=== PATIENT | female | born 1960 | race Caucasian/White ===

== ENCOUNTER → 2016-09-30 | Outpatient (CLI) | payer BC ==
[~2016-09-30] MED LIST: MULT-506 PO
--- NOTE | 2016-09-30 16:40 | MAMMOGRAPHY REPORT ---
BILATERAL DIGITAL SCREENING MAMMOGRAM TOMOSYNTHESIS WITH CAD: 09/30/2016 CLINICAL HISTORY: Routine screening. Patient reported a recent burning sensation in the medial righ t breast, to our robotics technologist during this screening examination. TECHNIQUE: Breast tomosynthesis in addition to standard 2D mammography was performed. Current study was also evaluated with a Computer Aided Detection (CAD) system. COMPARISON: Comparison is made to exams dated: 09/25/2015 mammogram, 09/19/2014 mammogram, 09/15/2013 m ammogram, 09/03/2012 mammogram, 09/01/2011 mammogram, and 08/28/2010 mammogram - [facility]. BREAST COMPOSITION: The tissue of both breasts is heterogeneously dense, which may obscure small ma sses. FINDINGS: There are scattered and grouped stable benign-appearing punctate microcalcifications in th e breasts. No suspicious mass, architectural distortion or cluster of suspicious microcalcification s is seen. IMPRESSION: ACR BI-RADS CATEGORY 1: NEGATIVE 1. There is no mammographic evidence of malignancy. A 1 year screening mammogram is recommended. 2. Clinical follow-up is recommended for the reported burning sensation in the medial right breast. The patient will receive written notification of the results. Approximately 10% of breast cancers are not detected with mammography. A negative mammographic repor t should not delay biopsy if a clinically suggestive mass is present. Deja House M.D. ay/:09/30/2016 15:48:51 Scientific Director: Trixie CUEVAS(Pelon)(Tatyana), [facility] letter sent: Normal 1/2 BI-RADS Code: ACR BI-RADS Category 1: Negative
== END | disposition home or self-care (01) ==
LOC: C.MAMM 08:26
PROVIDERS: ATTEND Obstetrics & Gynecology
DX: Z12.31 Encounter for screening mammogram for malignant neoplasm of breast (principal)

== ENCOUNTER → 2016-10-21 | Outpatient (CLI) | payer BC | END | disposition home or self-care (01) | LOC: C.LAB 08:08 | PROVIDERS: ATTEND Nutritionist | DX: Z13.89 Encounter for screening for other disorder (principal) ==

== ENCOUNTER → 2017-01-06 | Outpatient (CLI) | payer BC ==
[2017-01-10 20:38] LABS: IGA SERUM 187 mg/dL (81-463); TIS TRANS IGA 1 U/mL (<4)
== END | disposition home or self-care (01) ==
LOC: C.LAB1850 11:27
PROVIDERS: ATTEND Physician Assistant
DX: R19.7 Diarrhea, unspecified (principal)

== ENCOUNTER → 2017-01-09 | Day surgery (SDC) | payer BC ==
[2017-01-08 07:59] VITALS: Ht 167.6 cm; Wt 72.3 kg
[~2017-01-09] VITALS: Ht 167.6 cm; Wt 72.3 kg
[~2017-01-09] MED LIST changes: +LIDOCAINE HCL 2% 2 ML VIAL (20MG/ML) ONE; -MULT-506 PO; +PROPOFOL IV EMULSION 10 MG/ML 20 ML VIAL IV ONE; +SODIUM CHLORIDE 0.9% 500ML 500 ML IV ONE
--- NOTE | 2017-01-09 13:32 | Endo History and Physical ---
History & Physical Date of Service: Jan 09, 2017. Chief Complaint: diarrhea Referring Physician: Dr. Darlyn Ayoub History of Present Illness 56 yo CF who presents for Colonoscopy secondary to diarrhea. Past Surgical History Hx Cardiac Surgery: No Hx Internal Defibrillator: No Hx Pacemaker: No Hx Abdominal Surgery: Yes (KODY, ) Hx of Implantable Prosthesis: No Hx Post-Op Nausea and Vomiting: No Hx Cancer Surgery: No Hx Thoracic Surgery: No Hx Orthopedic: No Hx Urinary Tract Surgery: No Family History Colon CA Social History Smoking Status: Never Smoker Hx Substance Use: No Hx Alcohol Use: No Allergies Coded Allergies: Nitrofurantoin (Verified Allergy, Unknown, RASH AND HIVES, 01/08/17) Current Medications Reported Home Medications Medications Dose Route/Sig Max Daily Dose Days Date Category No Active Prescriptions or Reported Medications Rx Vital Signs Weight (Kilograms): 72.27 Height (Feet): 5 Height (Inches): 6 Date Time Temp Pulse Resp B/P (MAP) Pulse Ox O2 Delivery O2 Flow Rate FiO2 01/09/17 13:17 36.8 70 18 118/75 (89) 100 Room Air Physical Exam General Appearance: WD/WN, no apparent distress Respiratory/Chest: Auscultation: breath sounds normal Cardiovascular: Heart Auscultation: RRR Abdomen: Bowel Sounds: normal Inspection & Palpation: soft, non-distended, no tenderness, guarding & rebound Assessment and Plan Assessment: 56 yo CF who presents for Colonoscopy secondary to diarrhea. Plan: Proceed with colonoscopy.
--- NOTE | 2017-01-09 14:00 | GI REPORT ---
Procedure Date: 01/09/2017 1:37 PM Procedure: Colonoscopy Indications: Chronic diarrhea Medicines: Monitored Anesthesia Care Complications: No immediate complications. Estimated Blood Loss: Estimated blood loss: none. Procedure: Pre-Anesthesia Assessment: - Prior to the procedure, a History and Physical was performed, and patient medications and allergies were reviewed. The patient's tolerance of previous anesthesia was also reviewed. The risks and benefits of the procedure and the sedation options and risks were discussed with the patient. All questions were answered, and informed consent was obtained. Prior Anticoagulants: The patient has taken no previous anticoagulant or antiplatelet agents. ASA Grade Assessment: II - A patient with mild systemic disease. After reviewing the risks and benefits, the patient was deemed in satisfactory condition to undergo the procedure. After I obtained informed consent, the scope was passed under direct vision. Throughout the procedure, the patient's blood pressure, pulse, and oxygen saturations were monitored continuously. The scope was introduced through the anus and advanced to the terminal ileum. The colonoscopy was performed without difficulty. The patient tolerated the procedure well. The quality of the bowel preparation was good. The terminal ileum, ileocecal valve, appendiceal orifice, and rectum were photographed. Findings: Non-bleeding internal hemorrhoids were found during retroflexion. The hemorrhoids were small. Several random biopsies were obtained with cold forceps for histology in the entire colon. Fluid aspiration for cytology was performed in the entire colon. Impression: - Non-bleeding internal hemorrhoids. - Several random biopsies were obtained in the entire colon. - Fluid aspiration was performed. Recommendation: - Resume previous diet. - Continue present medications. - Repeat colonoscopy for surveillance based on pathology results. - Return to primary care physician as previously scheduled. Ryan Douglas DO 01/09/2017 2:00:22 PM This report has been signed electronically. Note Initiated On: 01/09/2017 1:37 PM I attest to the content of the Intraoperative Record and orders documented therein, exceptions below
--- NOTE | 2017-01-09 14:03 | Discharge Instructions ---
Endoscopy Patient Instructions Date / Procedure(s) Performed Jan 09, 2017. Colonoscopy Allergy Information Coded Allergies: Nitrofurantoin (Verified Allergy, Unknown, RASH AND HIVES, 01/08/17) Discharge Date / Findings Jan 09, 2017. Internal hemorrhoids Random colon biopsies Stool aspirate collected Medication Instructions OK to resume all medications today as prescribed Reported Home Medications Medications Dose Route/Sig Max Daily Dose Days Date Category No Active Prescriptions or Reported Medications Rx Provider Instructions Activity Restrictions - No exercising or heavy lifting for 24 hours. - Do not drink alcohol the day of the procedure. - Do not drive a car or operate machinery until the day after the procedure. - Do not make any important decisions or sign important papers in 24 hours after the procedure. Following Day: - Return to full activity which may include returning to work/school. Diet Start your diet with liquids and light foods (jello, soup, juice, toast). Then eat your usual diet if not nauseated. Treatment For Common After Affects For mild abdominal pain, bloating, or excessive gas: - Rest - Eat lightly - Lie on right side Follow-Up Information Follow-up with Dr. Darlyn Ayoub as scheduled Anesthesia Information What You Should Know You have had a procedure that required some medicine to reduce anxiety and discomfort. This treatment is called moderate sedation. After receiving the treatment, you may be sleepy, but you will be able to breathe on your own. The effects of the treatment may last for several hours. Follow these instructions along with Activity/Diet recommendations noted above: * Do NOT do anything where dizziness or clumsiness would be dangerous. * Rest quietly at home today, then you can be up and about tomorrow. * Have a responsible person stay with you the rest of today. * You may have had an I.V. today. If so, you may take the dressing off later today. Recommendations Call your doctor if: * Trouble breathing * Continuous vomiting for more than 24 hours * Temperature above 101 degrees * Severe abdominal pain or bloating * Pain not relieved by pain medicine ordered * There is increased drainage or redness from any incision * A large amount of rectal bleeding greater than 2-3 tablespoons. (If you had a polyp/s removed or have hemorrhoids, a small amount of blood - from the rectum is to be expected.) * You have any unanswered questions or concerns. IN THE EVENT OF A SERIOUS EMERGENCY, GO TO THE NEAREST EMERGENCY ROOM Your discharge instructions were prepared by provider Ryan Douglas. Patient Instructions Signature Page Naima Rhodes Patient (or Guardian) Signature/Date: I have read and understand the instructions given to me by my caregivers. Caregiver/RN/Doctor Signature/Date: The above-named patient and/or guardian has received patient instructions on this date. + Original Patient Signature Page (only) stays with chart. Please make copy for patient.
[2017-01-09 14:25] VITALS: BP 119/79; PULSE 63; O2SAT 99
--- NOTE | 2017-01-09 15:39 | Anesthesiology Progress Note ---
Anesthesia Post Op Note Date & Time Jan 09, 2017 at 15:39 Vital Signs Pain Intensity: 0 Vital Signs Past 12 Hours Date Time Temp Pulse Resp B/P (MAP) Pulse Ox O2 Delivery O2 Flow Rate FiO2 01/09/17 14:25 63 20 119/79 (92) 99 Room Air 01/09/17 14:09 71 18 128/66 (86) 94 Room Air 01/09/17 13:54 87 18 114/66 (82) 97 Room Air 01/09/17 13:17 36.8 70 18 118/75 (89) 100 Room Air Notes Mental Status: alert / awake / arousable, participated in evaluation Pt Amnestic to Procedure: Yes Nausea / Vomiting: adequately controlled Pain: adequately controlled Airway Patency, RR, SpO2: stable & adequate BP & HR: stable & adequate Hydration State: stable & adequate Anesthetic Complications: no major complications apparent
== END | disposition home or self-care (01) ==
LOC: C.GI 12:58
PROVIDERS: ATTEND Internal Medicine
DX: K52.9 Noninfective gastroenteritis and colitis, unspecified (principal); R19.7 Diarrhea, unspecified; Z80.0 Family history of malignant neoplasm of digestive organs; K64.8 Other hemorrhoids

== ENCOUNTER → 2017-02-19 | Outpatient (CLI) | payer BC ==
[~2017-02-19] MED LIST changes: -LIDOCAINE HCL 2% 2 ML VIAL (20MG/ML) ONE; +OPTIRAY 320 IV PRN; -PROPOFOL IV EMULSION 10 MG/ML 20 ML VIAL IV ONE; -SODIUM CHLORIDE 0.9% 500ML 500 ML IV ONE
--- NOTE | 2017-02-19 11:50 | DIAGNOSTIC IMAGING REPORT ---
ABDOMEN AND PELVIS CT WITH IV AND ORAL CONTRAST CT DOSE: 730.10 mGycm HISTORY: R19.7 [id number] Nonspecific [id number] Abdominal [id number] TECHNIQUE: Multiaxial CT images of the abdomen and pelvis were performed following the use of intravenous and oral contrast. A dose lowering technique was utilized adhering to the principles of ALARA. COMPARISON STUDY: None. FINDINGS: The lung bases are essentially clear. No pneumoperitoneum. No pneumatosis. A 4 cm low density structure within the sacral canal at the S2 level likely represents a Tarlov cyst. There are few scattered punctate calcifications within the peritoneum along the surface of the right hepatic dome. These are of doubtful clinical significance. Cholecystectomy. The liver, spleen, adrenal glands, and pancreas are unremarkable. A 3 mm hypodense lesion within the right kidney is too small to characterize. There is a 4 mm stone within the upper pole the left kidney. No ureteral stones. No hydronephrosis. No retroperitoneal lymphadenopathy. Tiny fat-containing umbilical hernia and tiny fat-containing bilateral inguinal hernias. The bladder, uterus, and ovaries are unremarkable. No bowel wall thickening or obstruction. Normal appendix. IMPRESSION: 1. No bowel wall thickening or obstruction. 2. Cholecystectomy. 3. Left-sided nephrolithiasis. No ureteral stones. No hydronephrosis. 4. Additional findings as described above. Electronically signed by: Poncho Schroeder M.D. 02/19/2017 11:48 AM Dictated Date/Time: 02/19/2017 11:34 AM
== END | disposition home or self-care (01) ==
LOC: C.CTS 10:43
PROVIDERS: ATTEND Family Medicine
DX: K52.9 Noninfective gastroenteritis and colitis, unspecified (principal); R19.7 Diarrhea, unspecified; R10.9 Unspecified abdominal pain

== ENCOUNTER → 2017-04-06 | Outpatient (CLI) | payer BC ==
[~2017-04-06] MED LIST changes: +MULT-506 PO; -OPTIRAY 320 IV PRN
== END | disposition home or self-care (01) ==
LOC: C.PAPS 11:56
PROVIDERS: ATTEND Obstetrics & Gynecology
DX: Z01.419 Encounter for gynecological examination (general) (routine) without abnormal findings (principal)

== ENCOUNTER → 2017-04-13 | Day surgery (SDC) | payer BC ==
[2017-03-31 12:01] VITALS: Ht 167.6 cm; Wt 72.3 kg
[~2017-04-13] VITALS: Ht 167.6 cm; Wt 72.3 kg
[~2017-04-13] MED LIST changes: +LIDOCAINE HCL 2% 2 ML VIAL (20MG/ML) ONE; +MIDAZOLAM HCL 1 MG/ML 2ML VIAL ONE; +ONDANSETRON INJ 2 MG/ML 2 ML VIAL ONE; +PROPOFOL IV EMULSION 10 MG/ML 20 ML VIAL IV ONE; +SODIUM CHLORIDE 0.9% 500ML 500 ML IV ONE
--- NOTE | 2017-04-13 12:32 | Endo History and Physical ---
History & Physical Date of Service: Apr 13, 2017. Chief Complaint: Diarrhea Referring Physician: Alaina Ayoub History of Present Illness 56 yo CF who presents for colonoscopy secondary to diarrhea. Past Surgical History Hx Cardiac Surgery: No Hx Internal Defibrillator: No Hx Pacemaker: No Hx Abdominal Surgery: Yes (KODY, ) Hx of Implantable Prosthesis: No Hx Post-Op Nausea and Vomiting: No Hx Cancer Surgery: No Hx Thoracic Surgery: No Hx Orthopedic: No Hx Urinary Tract Surgery: No Family History Colon CA Social History Smoking Status: Never Smoker Hx Substance Use: No Hx Alcohol Use: No Allergies Coded Allergies: Nitrofurantoin (Verified Allergy, Unknown, RASH AND HIVES, 04/13/17) Current Medications Reported Home Medications Medications Dose Route/Sig Max Daily Dose Days Date Category Multivitamin (Multivitamins) Tab 1 Tab PO DAILY 03/31/17 Reported Vital Signs Weight (Kilograms): 72.27 Height (Feet): 5 Height (Inches): 6 Date Time Temp Pulse Resp B/P (MAP) Pulse Ox O2 Delivery O2 Flow Rate FiO2 04/13/17 12:05 36.6 78 20 113/59 (77) 99 Room Air Physical Exam General Appearance: WD/WN, no apparent distress Respiratory/Chest: Auscultation: breath sounds normal Cardiovascular: Heart Auscultation: RRR Abdomen: Bowel Sounds: normal Inspection & Palpation: soft, non-distended, no tenderness, guarding & rebound Assessment and Plan Assessment: 56 yo CF who presents for colonoscopy secondary to diarrhea. Plan: Proceed with colonoscopy.
--- NOTE | 2017-04-13 12:54 | GI REPORT ---
Procedure Date: 04/13/2017 12:35 PM Procedure: Colonoscopy Indications: Chronic diarrhea Medicines: Monitored Anesthesia Care Complications: No immediate complications. Estimated Blood Loss: Estimated blood loss: none. Procedure: Pre-Anesthesia Assessment: - Prior to the procedure, a History and Physical was performed, and patient medications and allergies were reviewed. The patient's tolerance of previous anesthesia was also reviewed. The risks and benefits of the procedure and the sedation options and risks were discussed with the patient. All questions were answered, and informed consent was obtained. Prior Anticoagulants: The patient has taken no previous anticoagulant or antiplatelet agents. ASA Grade Assessment: II - A patient with mild systemic disease. After reviewing the risks and benefits, the patient was deemed in satisfactory condition to undergo the procedure. After I obtained informed consent, the scope was passed under direct vision. Throughout the procedure, the patient's blood pressure, pulse, and oxygen saturations were monitored continuously. The scope was introduced through the anus and advanced to the terminal ileum. The colonoscopy was performed without difficulty. The patient tolerated the procedure well. The quality of the bowel preparation was good. The terminal ileum, ileocecal valve, appendiceal orifice, and rectum were photographed. Findings: The perianal and digital rectal examinations were normal. Non-bleeding internal hemorrhoids were found during retroflexion. The hemorrhoids were small. Several random biopsies were obtained with cold forceps for histology in the entire colon. Impression: - Non-bleeding internal hemorrhoids. - Several random biopsies were obtained in the entire colon. Recommendation: - Resume previous diet. - Continue present medications. - Repeat colonoscopy for surveillance based on pathology results. - Return to primary care physician as previously scheduled. Ryan Douglas, 04/13/2017 12:54:14 PM This report has been signed electronically. Note Initiated On: 04/13/2017 12:35 PM I attest to the content of the Intraoperative Record and orders documented therein, exceptions below
[2017-04-13 13:26] VITALS: BP 103/71; PULSE 70; O2SAT 100
--- NOTE | 2017-04-13 13:32 | Discharge Instructions ---
Endoscopy Patient Instructions Date / Procedure(s) Performed Apr 13, 2017. Colonoscopy Allergy Information Coded Allergies: Nitrofurantoin (Verified Allergy, Unknown, RASH AND HIVES, 04/13/17) Discharge Date / Findings Apr 13, 2017. Random colon biopsies Internal hemorrhoids Medication Instructions OK to resume all medications today as prescribed Reported Home Medications Medications Dose Route/Sig Max Daily Dose Days Date Category Multivitamin (Multivitamins) Tab 1 Tab PO DAILY 03/31/17 Reported Provider Instructions Activity Restrictions - No exercising or heavy lifting for 24 hours. - Do not drink alcohol the day of the procedure. - Do not drive a car or operate machinery until the day after the procedure. - Do not make any important decisions or sign important papers in 24 hours after the procedure. Following Day: - Return to full activity which may include returning to work/school. Diet Start your diet with liquids and light foods (jello, soup, juice, toast). Then eat your usual diet if not nauseated. Treatment For Common After Affects For mild abdominal pain, bloating, or excessive gas: - Rest - Eat lightly - Lie on right side Follow-Up Information Follow-up with Alaina Ayoub as scheduled Anesthesia Information What You Should Know You have had a procedure that required some medicine to reduce anxiety and discomfort. This treatment is called moderate sedation. After receiving the treatment, you may be sleepy, but you will be able to breathe on your own. The effects of the treatment may last for several hours. Follow these instructions along with Activity/Diet recommendations noted above: * Do NOT do anything where dizziness or clumsiness would be dangerous. * Rest quietly at home today, then you can be up and about tomorrow. * Have a responsible person stay with you the rest of today. * You may have had an I.V. today. If so, you may take the dressing off later today. Recommendations Call your doctor if: * Trouble breathing * Continuous vomiting for more than 24 hours * Temperature above 101 degrees * Severe abdominal pain or bloating * Pain not relieved by pain medicine ordered * There is increased drainage or redness from any incision * A large amount of rectal bleeding greater than 2-3 tablespoons. (If you had a polyp/s removed or have hemorrhoids, a small amount of blood - from the rectum is to be expected.) * You have any unanswered questions or concerns. IN THE EVENT OF A SERIOUS EMERGENCY, GO TO THE NEAREST EMERGENCY ROOM Your discharge instructions were prepared by provider Ryan Douglas. Patient Instructions Signature Page Naima Rhodes Patient (or Guardian) Signature/Date: I have read and understand the instructions given to me by my caregivers. Caregiver/RN/Doctor Signature/Date: The above-named patient and/or guardian has received patient instructions on this date. + Original Patient Signature Page (only) stays with chart. Please make copy for patient.
--- NOTE | 2017-04-13 13:40 | Anesthesiology Progress Note ---
Anesthesia Post Op Note Date & Time Apr 13, 2017 at 13:40 Vital Signs Pain Intensity: 0 Vital Signs Past 12 Hours Date Time Temp Pulse Resp B/P (MAP) Pulse Ox O2 Delivery O2 Flow Rate FiO2 04/13/17 13:26 70 18 103/71 (82) 100 Room Air 04/13/17 13:11 80 18 98/64 (75) 99 Room Air 04/13/17 12:56 75 18 106/63 (77) 98 Room Air 04/13/17 12:05 36.6 78 20 113/59 (77) 99 Room Air Notes Mental Status: alert / awake / arousable, participated in evaluation Pt Amnestic to Procedure: Yes Nausea / Vomiting: adequately controlled Pain: adequately controlled Airway Patency, RR, SpO2: stable & adequate BP & HR: stable & adequate Hydration State: stable & adequate Anesthetic Complications: no major complications apparent
== END | disposition home or self-care (01) ==
LOC: C.GI 11:32
PROVIDERS: ATTEND Internal Medicine
DX: K52.9 Noninfective gastroenteritis and colitis, unspecified (principal); K64.8 Other hemorrhoids; Z80.0 Family history of malignant neoplasm of digestive organs

== ENCOUNTER → 2017-08-07 | Outpatient (CLI) | payer BC ==
[~2017-08-07] MED LIST changes: -LIDOCAINE HCL 2% 2 ML VIAL (20MG/ML) ONE; -MIDAZOLAM HCL 1 MG/ML 2ML VIAL ONE; -ONDANSETRON INJ 2 MG/ML 2 ML VIAL ONE; -PROPOFOL IV EMULSION 10 MG/ML 20 ML VIAL IV ONE; -SODIUM CHLORIDE 0.9% 500ML 500 ML IV ONE
--- NOTE | 2017-08-07 08:56 | DIAGNOSTIC IMAGING REPORT ---
R KNEE 1 OR 2 VIEWS ROUTINE CLINICAL HISTORY: BILATERAL KNEE PAIN COMPARISON: Knee radiographs May 29, 2011. FINDINGS: Alignment of the right knee is anatomic. There is no fracture or suspicious lesion. No joint effusion is noted. Joint spaces are preserved. There is minimal osteophytosis of the medial and lateral compartments. IMPRESSION: 1. No acute fracture or joint effusion of the right knee. 2. Preserved joint spaces with minimal osteophytosis of the right knee. Electronically signed by: Curly Lara M.D. 08/07/2017 8:55 AM Dictated Date/Time: 08/07/2017 8:54 AM
--- NOTE | 2017-08-07 08:56 | DIAGNOSTIC IMAGING REPORT ---
L KNEE 1 OR 2 VIEWS ROUTINE CLINICAL HISTORY: Left knee pain COMPARISON: None. DISCUSSION: No acute fractures or dislocations are visualized. The bones are mildly osteopenic.. There are mild degenerative changes in the patellofemoral joint. There is minor lateral joint compartment spurring. There is equivocal tiny osteochondroma arising from the anterior cortex of the distal femur IMPRESSION: 1. No acute fractures 2. Mild degenerative changes. Electronically signed by: Joe Farmer M.D. 08/07/2017 8:54 AM Dictated Date/Time: 08/07/2017 8:53 AM
== END | disposition home or self-care (01) ==
LOC: C.RAD1850 08:27
PROVIDERS: ATTEND Physician Assistant
DX: M25.561 Pain in right knee (principal); M25.562 Pain in left knee; M25.461 Effusion, right knee; M25.462 Effusion, left knee; R63.5 Abnormal weight gain

== ENCOUNTER → 2017-09-03 | Outpatient (CLI) | payer BC ==
[2017-09-03 10:18] LABS: BASO % 0.6 %; BASO ABS # 0.03 K/uL (0-0.2); EOS % 5.1 %; EOS ABS # 0.26 K/uL (0-0.5); HEMATOCRIT 44.5 % (37-47); HEMOGLOBIN 15.6 g/dL (12.0-16.0); IG# 0.01 K/uL (0.00-0.02); LYMPH ABS # 1.57 K/uL (1.2-3.4); MEAN CELL VOLUME 89.2 fL (80-100); MEAN CORPUSCULAR HEMOGLOBIN 31.3 pg (25-34); MEAN CORPUSCULAR HGB CONC 35.1 g/dl (32-36); MEAN PLATELET VOLUME 9.4 fL (7.4-10.4); MONO % 10.1 %; MONO ABS # 0.51 K/uL (0.11-0.59); NEUT ABS # 2.69 K/uL (1.4-6.5); PLATELET COUNT 324 K/uL (130-400); RED CELL DISTRIBUTION WIDTH CV 12.8 % (11.5-14.5); RED CELL DISTRIBUTION WIDTH SD 41.6 fL (36.4-46.3); WHITE BLOOD COUNT 5.07 K/uL (4.8-10.8)
[2017-09-03 10:29] LABS: ALBUMIN 4.6 gm/dl (3.4-5.0); ALT/SGPT 37 U/L (12-78); AST/SGOT 23 U/L (15-37); CREATININE 0.72 mg/dl (0.60-1.20)
[2017-09-03 10:32] LABS: ALKALINE PHOSPHATASE 57 U/L (45-117); TOTAL PROTEIN 8.3 gm/dl (6.4-8.2); TRANSFERRIN 356 mg/dl (200-360)
== END | disposition home or self-care (01) ==
LOC: C.LAB1850 09:09
PROVIDERS: ATTEND Internal Medicine Rheumatology
DX: M25.462 Effusion, left knee (principal); R76.8 Other specified abnormal immunological findings in serum; M35.9 Systemic involvement of connective tissue, unspecified; Z87.898 Personal history of other specified conditions

== ENCOUNTER → 2017-09-09 | Outpatient (CLI) | payer BC ==
--- NOTE | 2017-09-10 10:49 | DIAGNOSTIC IMAGING REPORT ---
MRI OF THE LEFT KNEE WITHOUT CONTRAST CLINICAL HISTORY: Anterior left knee pain and swelling. Positive JOYA. COMPARISON STUDY: Left knee radiographs August 07, 2017. TECHNIQUE: Utilizing a 1.5 Brandee magnet and dedicated coil, multiplanar, multiecho imaging of the left knee was performed without intravenous or intraarticular contrast. FINDINGS: Alignment of the left knee is anatomic. The extensor mechanism is intact. Note is made of a 11 x 4.3 x 3.2 cm popliteal cyst. There is a small left knee joint effusion. There is no marrow replacement. Mild subchondral signal abnormality within the lateral patella is due to overlying chondrosis. The cruciate and collateral ligaments are intact. No medial meniscal tear is present. There is an oblique tear of the body of the lateral meniscus. There is mild chondrosis within the medial compartment with moderate chondrosis of the lateral patellar cartilage as well as mild to moderate chondrosis within the lateral compartment. No erosions are identified by MRI. No mass is identified. IMPRESSION: 1. Large popliteal cyst, measuring 11 x 4.3 x 3.2 cm. 2. Small left knee joint effusion. 3. Oblique tear of the body of the lateral meniscus. 4. Mild to moderate tricompartmental osteoarthritis, most pronounced within the lateral and patellofemoral compartments. Electronically signed by: Curly Lara M.D. 09/10/2017 10:47 AM Dictated Date/Time: 09/09/2017 2:54 PM
== END | disposition home or self-care (01) ==
LOC: C.MRI 13:38
PROVIDERS: ATTEND Internal Medicine Rheumatology
DX: M35.9 Systemic involvement of connective tissue, unspecified (principal); M25.462 Effusion, left knee; R76.8 Other specified abnormal immunological findings in serum; Z87.898 Personal history of other specified conditions